=== PATIENT | female | born 1995 | race Caucasian/White ===

== ENCOUNTER 2019-02-14 09:54 | Day surgery (SDC) | payer BC ==
[2019-02-14] MEDS ORDERED: Bupivacaine/Epinephrine 0.25% 30 ML VIAL ONE (11:33)
[2019-02-14] MEDS ORDERED: Fentanyl 100 MCG/2 ML VIAL ONE ×2 (11:35→14:42)
[2019-02-14] MEDS ORDERED: Scopolamine 1.5 mg/72 hour Patch ONE (11:35)
[2019-02-14] MEDS ORDERED: PROPOFOL 200 MG/20 ML VIAL ONE (11:59)
[2019-02-14] MEDS ORDERED: Rocuronium Bromide 10 MG/ML (10ML VIAL) ONE (11:59)
[2019-02-14] MEDS ORDERED: Ondansetron PF 4 MG/2 ML Vial ONE (11:59)
[2019-02-14] MEDS ORDERED: Lidocaine 1% PF 5 ML VIAL ONE (11:59)
[2019-02-14] MEDS ORDERED: Succinylcholine Chloride 20 MG/ML 10 ml SYRINGE FS ONE (11:59)
[2019-02-14] MEDS ORDERED: Glycopyrrolate 0.2 MG/ML 5 ML SYRINGE ONE (11:59)
[2019-02-14] MEDS ORDERED: Dexamethasone 20 MG/5 ML VIAL ONE (11:59)
[2019-02-14] MEDS ORDERED: Piperacillin/Tazobactam 3.375 GM VIAL ONE (12:35)
[2019-02-14] MEDS ORDERED: Sodium Chloride 0.9% 100 ML ONE (12:35)
[2019-02-14] MEDS ORDERED: Ketorolac Tromethamine 30 MG/ML VIAL ONE (12:38)
--- NOTE | 2019-02-14 13:07 | HP ---
HISTORY OF PRESENT ILLNESS: Eulalia Malik is a 23-year-old female, single, lives with a roommate, manages apartment complex, had the acute onset of central abdominal pain 0500 hours. She presented to [facility] Emergency Room. CAT scan of the abdomen and pelvis confirmed appendicitis. She is given Zosyn and transferred to [facility] for definitive appendectomy. ALLERGIES: NONE. SOCIAL HISTORY: Tobacco, none. Alcohol, rarely. MEDICATIONS: None routinely. PAST SURGICAL HISTORY: Knee surgery. PAST MEDICAL HISTORY: Otherwise noncontributory. REVIEW OF SYSTEMS: Ten-point noncontributory. PHYSICAL EXAMINATION: VITAL SIGNS: 121 kg, 267 pounds, 66 inches, BMI 42. Blood pressure 146/74, temperature 98.4 degrees, respiratory rate 16. HEAD, EARS, EYES, NOSE AND THROAT: Unremarkable. Sclerae nonicteric. LUNGS: Clear to auscultation. CARDIAC: Regular rate and rhythm. No murmur or gallop. ABDOMEN: Obese, soft, tenderness in right lower quadrant with guarding and rebound. EXTREMITIES: Unremarkable. No ankle edema. Palpable pedal pulses. NEUROLOGICAL: Intact. No focal neurological deficit. SKIN: Nonjaundiced. LYMPH: No lymphadenopathy in neck, axilla, or groins. DIAGNOSTIC DATA: CT scan confirms appendicitis. LABORATORY DATA: Laboratory at [facility] emergency room were unremarkable. Urinalysis unremarkable. test negative. ASSESSMENT/PLAN: 1. Acute appendicitis. Recommend laparoscopic video appendectomy. Risks of infection, bleeding, visceral injury, open procedure, transfusion discussed, questions answered. More than 50% of the time on exam, the patient was spent on counseling, explanation, and answering questions. 2. Morbid obesity. Job ID: [id number]
[2019-02-14] MEDS ORDERED: HYDROcodone/Acetaminophen 5/325 mg Tablet ONE (16:53)
--- NOTE | 2019-02-14 20:06 | OP ---
DATE OF PROCEDURE: 02/14/2019 PREOPERATIVE DIAGNOSIS: Acute appendicitis. POSTOPERATIVE DIAGNOSIS: Acute appendicitis. PROCEDURE PERFORMED: Laparoscopic video appendectomy. ANESTHESIA: General, local 0.5% Marcaine with epinephrine 30 mL. DESCRIPTION OF PROCEDURE: The patient was taken to the operating room under general anesthesia. Kearney catheter was placed at the beginning of the procedure and removed at the end. Abdomen was prepared with ChloraPrep and draped in routine fashion. 0.5% Marcaine with epinephrine 30 mL, total volume used, infiltrated in the skin and subcutaneous tissue at each port site. Infraumbilical incision was made. Pneumoperitoneum to 15 mmHg was obtained with a Veress needle, replaced with a 5 port, video laparoscope was inserted. Suprapubic incision was made, and a 12 port placed. Right lateral subcostal incision was made, and a 5 port placed. Mesoappendix was taken down with the LigaSure. The stump of the appendix divided with Endo-DILIA blue load stapler. Stapled cecal stump hemostasis was gained with clips. Appendix was removed and submitted to Pathology. Good hemostasis assured. Suprapubic fascia was approximated with 0 Vicryl GraNee needle. Irrigant and pneumoperitoneum evacuated. All instruments were removed. All skin incisions were approximated with interrupted subdermal 4-0 Monocryl and [place] glue applied. Job ID: [id number]
== END 2019-02-14 17:25 | disposition home or self-care (01) ==
LOC: SDC 09:54
PROVIDERS: ATTEND Specialist
PROC: 0DTJ4ZZ Resection of Appendix, Percutaneous Endoscopic Approach (ICD-10-PCS; principal; 2019-02-14)
DX: K35.80 Unspecified acute appendicitis (principal); E66.01 Morbid (severe) obesity due to excess calories; Z68.41 Body mass index [BMI] 40.0-44.9, adult
CPT/HCPCS: 88304; J0131; J1100; J1885; J2001; J2405; J2543; J2704; J3010; J3490

== ENCOUNTER 2019-03-04 23:44 | Emergency (ER) | payer BC ==
[2019-03-05] MEDS ORDERED: HYDROcodone/Acetaminophen 10/325 mg Tablet ONE (00:09)
== END 2019-03-05 00:58 | disposition home or self-care (01) ==
LOC: ERS 23:44
DX: G89.18 Other acute postprocedural pain (principal); R10.9 Unspecified abdominal pain
CPT/HCPCS: 99283